=== PATIENT | female | born 1995 ===

== ENCOUNTER 2025-07-31 08:15 | Inpatient (IN) | payer OTHER ==
[~2025-07-31] VITALS: Ht 154.9 cm; Wt 2.7 kg
[2025-07-31] MEDS ORDERED: SYNTHROID88 MCG PO (09:19)
[2025-07-31 09:30] LABS: BASO % 0.5 % (0.1-1.2); EOS # 0.77 (0.04-0.54); EOS % 7.2 % (0.7-7.0); LYMPH # 2.53 (1.18-3.74); LYMPH % 23.5 % (19.3-53.1); MEAN PLATELET VOLUME 10.60 fl (9.4-12.4); MONO # 0.74 (0.24-0.82); MONO % 6.9 % (4.7-12.5); NEUT # 6.61 (1.56-6.13); NEUT % 61.4 % (34.0-71.1); RED CELL DISTRIBUTION WIDTH 14.2 % (11.6-14.4)
[2025-07-31 09:51] LABS: INR < 0.93
[2025-07-31 10:22] LABS: ALT/SGPT 27.0 U/L (12-78); AST/SGOT 15.0 U/L (15-37); BILIRUBIN TOTAL 0.24 mg/dL (0.3-1.2); BUN CREA RATIO 12.0 (7.0-25.0); CREATININE SERUM 0.69 mg/dL (0.55-1.02); GFR 99.23; GLOBULINA 3.9 G/DL (2.4-3.5); GLUCOSE FASTING 81.0 mg/dL (65-100); OSMOLALITY SERUM 275.0 MOSM/KG (275-295); TSH 3.65 uIU/mL (0.358-3.74)
[2025-08-06 06:10] VITALS: BP 94/65
[2025-08-06] MEDS ORDERED: PRENATA CHEWAB1 EACH PO (06:35)
[2025-08-06] MEDS ORDERED: RINGERS SOLUTION,LACTATED 1,000 ML IV SCH ×2 (07:00→11:45)
[2025-08-06 07:19] VITALS: BP 104/69
[2025-08-06] MEDS ORDERED: CEFAZOLIN SODIUM 1,000 MG VIAL ONE (08:01)
[2025-08-06] MEDS ORDERED: CITRIC ACID/SODIUM CITRATE 30 ML BLIST.PACK PO SCH (08:30)
[2025-08-06] MEDS ORDERED: CEFAZOLIN SODIUM 1,000 MG VIAL IV SCH (08:30)
[2025-08-06] MEDS ORDERED: OXYTOCIN 10 UNITS/ML VIAL ONE ×2 (09:32→16:32)
[2025-08-06] MEDS ORDERED: ERYTHROMYCIN BASE OPHT 1GM EACH TUBE OP ONE (09:33)
[2025-08-06] MEDS ORDERED: MORPHINE SULFATE 4 MG/ML CARTRIDGE IV PRN (11:30)
[2025-08-06] MEDS ORDERED: OXYTOCIN 1,000 ML IV ONE (11:45)
[2025-08-06] MEDS ORDERED: ONDANSETRON HCL 2 MG/ML VIAL IV SCH (12:00)
[2025-08-06] MEDS ORDERED: ACETAMINOPHEN 500 MG GEL..CAP PO SCH (12:00)
[2025-08-06] MEDS ORDERED: KETOROLAC TROMETHAMINE 30 MG VIAL ONE (12:29)
[2025-08-06] MEDS ORDERED: KETOROLAC TROMETHAMINE 30 MG VIAL IV SCH (14:00)
[2025-08-06] MEDS ORDERED: GABAPENTIN 300 MG CAPSULE PO SCH (17:00)
[2025-08-06] MEDS ORDERED: SIMETHICONE 125 MG CAPSULE PO SCH (17:00)
[2025-08-06 17:03] VITALS: BP 124/72
[2025-08-07] VITALS: BP 102/65
[2025-08-07] MEDS ORDERED: LEVOTHYROXINE SODIUM 88 MCG TABLET PO SCH (06:00)
[2025-08-07 08:00] VITALS: BP 104/70
[2025-08-07] MEDS ORDERED: KETOROLAC TROMETHAMINE 10 MG TABLET PO SCH (08:00)
[2025-08-07] MEDS ORDERED: OxyCODONE HCL 5 MG TABLET (ROXICODONE) PO PRN (08:00)
[2025-08-07 08:09] LABS: BASO % 0.2 % (0.1-1.2); EOS # 0.50 (0.04-0.54); EOS % 4.0 % (0.7-7.0); LYMPH # 1.94 (1.18-3.74); LYMPH % 15.5 % (19.3-53.1); MEAN PLATELET VOLUME 10.90 fl (9.4-12.4); MONO # 0.86 (0.24-0.82); MONO % 6.9 % (4.7-12.5); NEUT # 9.12 (1.56-6.13); NEUT % 73.0 % (34.0-71.1); RED CELL DISTRIBUTION WIDTH 14.8 % (11.6-14.4)
[2025-08-07] MEDS ORDERED: DOCUSATE SODIUM 100MG CAP PO SCH (09:00)
[2025-08-07 16:52] VITALS: BP 109/66
[2025-08-08] VITALS: BP 103/69
[2025-08-08 08:00] VITALS: BP 127/79
== END 2025-08-08 15:59 | disposition home or self-care (01) | DRG 788 ==
LOC: O/R 08-06 06:53 → LDR 08-06 06:53 → OB/GYN 08-06 06:53 → O/R 08-06 10:03 → OB/GYN 08-06 11:37
PROVIDERS: Obstetrics & Gynecology; ADMIT Obstetrics & Gynecology Maternal & Fetal Medicine; ATTEND Obstetrics & Gynecology Maternal & Fetal Medicine
PROC: 4A1HXCZ Monitoring of Products of Conception, Cardiac Rate, External Approach (ICD-10-PCS; 2025-08-06)
PROC: 10D00Z1 Extraction of Products of Conception, Low, Open Approach (ICD-10-PCS; principal; 2025-08-06 08:45)
DX: O32.1XX0 Maternal care for breech presentation, not applicable or unspecified (principal); Z3A.39 39 weeks gestation of pregnancy; Z37.0 Single live birth